=== PATIENT | male | born 1940 | race Caucasian/White ===

== ENCOUNTER 2016-07-24 09:49 | Outpatient (CLI) | payer MEDICARE ==
[2016-07-24 10:54] LABS: ALT (SGPT) 14 U/L (0-55); AST (SGOT) 14 U/L (5-34); Alkaline Phosphatase 49 U/L (40-150); Anion Gap 14 mmol/L (10-20); BUN (Urea Nitrogen) 49 mg/dL (8.4-25.7); Bilirubin, Total 0.6 mg/dL (0.2-1.2); Calc. Creatinine Clearance 0 mL/min (70-130); Calcium 8.6 mg/dL (7.8-10.44); Carbon Dioxide 22 mmol/L (23-31); Chloride 108 mmol/L (98-107); Estimated GFR-MDRD 41; Globulin 2.2 g/dL (2.4-3.5); LDL Cholesterol, Calculated 136 mg/dL; Protein, Total 6.1 g/dL (5.8-8.1)
[2016-07-24 10:56] LABS: #Basophils 0.1 thou/uL (0.0-0.2); #Eosinphils 0.2 thou/uL (0.0-0.7); #Lymphocytes 1.3 thou/uL (1.20-3.40); #Monocytes 0.7 thou/uL (0.11-0.59); #Neutrophils 4.5 thou/uL (1.40-6.50); %Basophils 0.9 % (0.0-1.0); %Eosinophils 3.7 % (0.0-10.0); %Monocytes 9.7 % (0.0-10.0); Hematocrit 35.6 % (42.0-52.0); Mean Platelet Volume 6.1 fL (7.4-10.4); Red Blood Cell (RBC) Count 3.57 mill/uL (4.70-6.10); White Blood Cell (WBC) Count 6.7 thou/uL (4.8-10.8)
== END 2016-07-24 09:50 | disposition home or self-care (01) ==
LOC: HPCALD 09:49
PROVIDERS: ATTEND Family Medicine
DX: I10 Essential (primary) hypertension (principal); E78.5 Hyperlipidemia, unspecified; R97.20 Elevated prostate specific antigen [PSA]
CPT/HCPCS: 36415; 80053; 80061; 84153; 85025

== ENCOUNTER 2016-09-07 16:24 | Emergency (ER) | payer MEDICARE ==
[2016-09-07 16:47] LABS: #Basophils 0.1 thou/uL (0.0-0.2); #Eosinphils 0.1 thou/uL (0.0-0.7); #Lymphocytes 1.1 thou/uL (1.20-3.40); #Monocytes 0.8 thou/uL (0.11-0.59); #Neutrophils 5.2 thou/uL (1.40-6.50); %Basophils 0.7 % (0.0-1.0); %Eosinophils 1.9 % (0.0-10.0); %Lymphocytes 15.6 % (21.0-51.0); %Monocytes 10.7 % (0.0-10.0); %Neutrophils 71.1 % (42.0-75.0); Hemoglobin 12.9 g/dL (14.0-18.0); Mean Corpuscular HGB CONC 33.7 g/dL (32.0-36.0); Mean Platelet Volume 7.5 fL (7.4-10.4); Platelet Count 207 thou/uL (130-400); RBC Distribution Width 10.8 % (11.5-14.5); Red Blood Cell (RBC) Count 3.78 mill/uL (4.70-6.10); White Blood Cell (WBC) Count 7.3 thou/uL (4.8-10.8)
[2016-09-07 17:04] LABS: ALT (SGPT) 11 U/L (0-55); AST (SGOT) 13 U/L (5-34); Albumin 3.9 g/dL (3.4-4.8); Alkaline Phosphatase 50 U/L (40-150); Anion Gap 15 mmol/L (10-20); BUN (Urea Nitrogen) 18 mg/dL (8.4-25.7); Bilirubin, Total 0.5 mg/dL (0.2-1.2); CK (CPK) 50 U/L (30-200); Calc. Creatinine Clearance 0 mL/min (70-130); Calcium 8.8 mg/dL (7.8-10.44); Carbon Dioxide 24 mmol/L (23-31); Chloride 99 mmol/L (98-107); Estimated GFR-MDRD 65; Globulin 2.5 g/dL (2.4-3.5); Glucose 98 mg/dL (83-110); Potassium 4.7 mmol/L (3.5-5.1); Protein, Total 6.4 g/dL (5.8-8.1); Sodium 133 mmol/L (136-145)
[2016-09-07 17:10] LABS: CKMB 1.9 ng/mL (0-6.6); Troponin I 0.033 ng/mL (< 0.028)
[2016-09-07] MEDS ORDERED: Nitroglycerin 2% Ointment 1 INCH/1 GM Packet ONE (17:29)
[2016-09-07 17:58] LABS: Bilirubin Negative (Negative); Blood, Urine Negative (Negative); Clarity Clear (Clear); Glucose, Urine (Dipstick) Negative (Negative); Leukocyte Negative (Negative); Nitrite Negative (Negative); Protein, Urine (Dipstick) Negative (Neg-Trace); Urobilinogen 0.2 mg/dL (0.2-1.0); pH, Urine 6.5 (5.0-9.0)
--- NOTE | 2016-09-07 21:14 | RAD ---
PORTABLE CHEST: Date: 09-07-16 Comparison: 08-24-15 This portable film at 1741 shows borderline heart size that is no different than before. The vessels are slightly congested compared to the last study, but there are no large effusions. Haziness in th e left costophrenic angle is probably due to the portable technique and positioning, rather than any fluid. It is not substantially different than the 2016 study. IMPRESSION: Question of mild vascular prominence. The exam otherwise shows no acute findings. POS: HOME
== END 2016-09-07 18:24 | disposition short-term general hospital (02) ==
LOC: BURERS 16:24
DX: M62.81 Muscle weakness (generalized) (principal); R79.89 Other specified abnormal findings of blood chemistry; I11.0 Hypertensive heart disease with heart failure; I50.9 Heart failure, unspecified; J44.9 Chronic obstructive pulmonary disease, unspecified; F41.9 Anxiety disorder, unspecified; Z87.891 Personal history of nicotine dependence; Z79.82 Long term (current) use of aspirin; Z79.899 Other long term (current) drug therapy
CPT/HCPCS: 36416; 71010; 80053; 81003; 82553; 84484; 85025; 93005; 96360

== ENCOUNTER 2016-11-23 08:55 | Outpatient (CLI) | payer MEDICARE ==
[2016-11-23 10:14] LABS: Anion Gap 17 mmol/L (10-20); BUN (Urea Nitrogen) 66 mg/dL (8.4-25.7); Calc. Creatinine Clearance 0 mL/min (70-130); Calcium 8.6 mg/dL (7.8-10.44); Carbon Dioxide 24 mmol/L (23-31); Cardiac Risk 5.8 (Less than 4.5); Chloride 101 mmol/L (98-107); Cholesterol 203 mg/dl (< 200 Desired); Estimated GFR-MDRD 22; Glucose 111 mg/dL (83-110); HDL Cholesterol 35 mg/dL (>60 Neg Risk); LDL Cholesterol, Calculated 148 mg/dL; Potassium 5.1 mmol/L (3.5-5.1); Sodium 137 mmol/L (136-145); Triglycerides 98 mg/dL (Less than 150)
== END 2016-11-23 08:56 | disposition home or self-care (01) ==
LOC: BURLAB 08:55
PROVIDERS: ATTEND Internal Medicine Cardiovascular Disease
DX: E78.2 Mixed hyperlipidemia (principal); I50.40 Unspecified combined systolic (congestive) and diastolic (congestive) heart failure; R97.20 Elevated prostate specific antigen [PSA]
CPT/HCPCS: 36415; 80048; 80061

== ENCOUNTER 2017-01-04 11:55 | Emergency (ER) | payer MEDICARE ==
[2017-01-04] MEDS ORDERED: Ibuprofen 800 MG TAB ONE (12:34)
[2017-01-04] MEDS ORDERED: HYDROcodone/Acetaminophen 10/325 mg Tablet ONE (12:34)
--- NOTE | 2017-01-04 16:59 | RAD ---
RIGHT ANKLE 3 VIEWS: Date: 01/04/17 Three views show a fracture of the distal fibular shaft with no displacement. The distal tibia appea rs intact. A large calcaneal spur was noted. IMPRESSION: Fracture of the distal fibular shaft. POS: HOME
== END 2017-01-04 12:40 | disposition home or self-care (01) ==
LOC: BURERS 11:55
DX: S82.831A Other fracture of upper and lower end of right fibula, initial encounter for closed fracture (principal); J44.9 Chronic obstructive pulmonary disease, unspecified; I10 Essential (primary) hypertension; F41.9 Anxiety disorder, unspecified; Z87.891 Personal history of nicotine dependence; Z79.82 Long term (current) use of aspirin; Z79.899 Other long term (current) drug therapy; Z79.1 Long term (current) use of non-steroidal anti-inflammatories (NSAID); W01.0XXA Fall on same level from slipping, tripping and stumbling without subsequent striking against object, initial encounter

== ENCOUNTER 2017-01-26 10:49 | Outpatient (CLI) | payer MEDICARE ==
[2017-01-26 11:55] LABS: #Basophils 0.1 thou/uL (0.0-0.2); #Eosinphils 0.3 thou/uL (0.0-0.7); #Monocytes 0.7 thou/uL (0.11-0.59); #Neutrophils 4.9 thou/uL (1.40-6.50); %Basophils 0.8 % (0.0-1.0); %Eosinophils 3.6 % (0.0-10.0); %Monocytes 10.3 % (0.0-10.0); %Neutrophils 70.3 % (42.0-75.0); Hemoglobin 11.9 g/dL (14.0-18.0); Mean Corpuscular HGB CONC 31.9 g/dL (32.0-36.0); Mean Corpuscular Hemoglobin 32.9 pg (27.0-31.0); Platelet Count 208 thou/uL (130-400); RBC Distribution Width 12.1 % (11.5-14.5); Red Blood Cell (RBC) Count 3.62 mill/uL (4.70-6.10)
[2017-01-26 12:18] LABS: ALT (SGPT) 11 U/L (8-55); AST (SGOT) 15 U/L (5-34); Albumin 4.1 g/dL (3.4-4.8); Alkaline Phosphatase 55 U/L (40-150); Anion Gap 14 mmol/L (10-20); BUN (Urea Nitrogen) 30 mg/dL (8.4-25.7); Bilirubin, Total 0.7 mg/dL (0.2-1.2); Calc. Creatinine Clearance 0 mL/min (70-130); Carbon Dioxide 25 mmol/L (23-31); Cardiac Risk 2.7 (Less than 4.5); Chloride 103 mmol/L (98-107); Cholesterol 137 mg/dl (< 200 Desired); Estimated GFR-MDRD 47; Globulin 2.3 g/dL (2.4-3.5); Glucose 106 mg/dL (83-110); HDL Cholesterol 50 mg/dL (>60 Neg Risk); LDL Cholesterol, Calculated 75 mg/dL; Potassium 5.3 mmol/L (3.5-5.1); Protein, Total 6.4 g/dL (5.8-8.1); Sodium 137 mmol/L (136-145); Triglycerides 60 mg/dL (Less than 150)
[2017-01-26 17:14] LABS: Iron 81 ug/dL (65-175); Phosphorus 3.6 mg/dL (2.3-4.7)
[2017-01-26 17:50] LABS: Folate (Folic Acid) 16.4 ng/mL (7.0-31.4)
[2017-01-28 02:11] LABS: % Free PSA 7.5 % (.); Total PSA 6.4 ng/mL (0.0-4.0)
== END 2017-01-26 10:50 | disposition home or self-care (01) ==
LOC: BURLAB 10:49
PROVIDERS: ATTEND Internal Medicine Nephrology
DX: E78.5 Hyperlipidemia, unspecified (principal); I12.9 Hypertensive chronic kidney disease with stage 1 through stage 4 chronic kidney disease, or unspecified chronic kidney disease; N18.4 Chronic kidney disease, stage 4 (severe); E78.2 Mixed hyperlipidemia; I25.10 Atherosclerotic heart disease of native coronary artery without angina pectoris; D53.9 Nutritional anemia, unspecified; R97.20 Elevated prostate specific antigen [PSA]
CPT/HCPCS: 36415; 80053; 80061; 82607; 82746; 83540; 83970; 84100; 84153; 84154; 85025

== ENCOUNTER 2017-03-17 22:40 | Emergency (ER) | payer MEDICARE ==
[2017-03-17] MEDS ORDERED: diphenhydrAMINE HCl 25 MG CAP ONE (23:19)
[2017-03-17 23:32] LABS: Bilirubin Negative (Negative); Blood, Urine Trace (Negative); Clarity Clear (Clear); Glucose, Urine (Dipstick) Negative (Negative); Leukocyte Negative (Negative); Nitrite Negative (Negative); Protein, Urine (Dipstick) 100 mg/dL (Neg-Trace); Specific Gravity, Urine 1.015 (1.005-1.030); Urobilinogen 0.2 mg/dL (0.2-1.0); pH, Urine 7.5 (5.0-9.0)
[2017-03-17 23:33] LABS: #Basophils 0.1 thou/uL (0.0-0.2); #Lymphocytes 0.2 thou/uL (1.20-3.40); #Monocytes 0.5 thou/uL (0.11-0.59); #Neutrophils 6.2 thou/uL (1.40-6.50); %Basophils 1.4 % (0.0-1.0); %Eosinophils 0.7 % (0.0-10.0); %Lymphocytes 2.4 % (21.0-51.0); %Monocytes 7.6 % (0.0-10.0); Hemoglobin 11.5 g/dL (14.0-18.0); Mean Corpuscular HGB CONC 32.8 g/dL (32.0-36.0); Mean Platelet Volume 7.8 fL (7.4-10.4); Platelet Count 168 thou/uL (130-400); RBC Distribution Width 11.4 % (11.5-14.5); Red Blood Cell (RBC) Count 3.38 mill/uL (4.70-6.10)
[2017-03-17 23:47] LABS: ALT (SGPT) 15 U/L (8-55); AST (SGOT) 19 U/L (5-34); Albumin 3.8 g/dL (3.4-4.8); Alkaline Phosphatase 52 U/L (40-150); Anion Gap 14 mmol/L (10-20); BUN (Urea Nitrogen) 33 mg/dL (8.4-25.7); Bilirubin, Total 0.5 mg/dL (0.2-1.2); Calc. Creatinine Clearance 0 mL/min (70-130); Calcium 8.9 mg/dL (7.8-10.44); Carbon Dioxide 24 mmol/L (23-31); Chloride 100 mmol/L (98-107); Estimated GFR-MDRD 33; Globulin 2.7 g/dL (2.4-3.5); Glucose 128 mg/dL (83-110); Potassium 4.7 mmol/L (3.5-5.1); Protein, Total 6.5 g/dL (5.8-8.1); Sodium 133 mmol/L (136-145)
[2017-03-17 23:49] LABS: Bacteria/HPF Rare-Few HPF (None Seen); RBC/HPF 0-3 HPF (0-3); Squamous Epithelial None Seen HPF (0-3); WBC/HPF None Seen HPF (0-3)
[2017-03-17 23:58] LABS: CKMB 0.8 ng/mL (0-6.6); Troponin I 0.097 ng/mL (< 0.028)
[2017-03-18] MEDS ORDERED: Acetaminophen 500 MG TAB ONE (00:22)
[2017-03-18] MEDS ORDERED: Furosemide 40 MG/4 ML VIAL ONE (00:30)
[2017-03-18 02:38] LABS: CKMB 0.8 ng/mL (0-6.6); Troponin I 0.142 ng/mL (< 0.028)
--- NOTE | 2017-03-18 07:29 | RAD ---
PORTABLE CHEST: DATE: 03/18/17. FINDINGS: An AP portable film at 0012 is compared with a 09/07/16 study. Mild cardiomegaly is no different than before. I do not believe there is overt vascular congestion, though the vessels are more prominent than seen in some people. They are not significantly differe nt than the prior study. It is difficult to assess the left lung base in this patient. I cannot te ll if there is minimal infiltrate here of if this is just due to poor penetration due to portable [place]. If the patient has pulmonary symptoms, a PA and lateral elective followup might be contemp lated. IMPRESSION: Equivocal findings in the left base, mainly because it is not seen well. Exam otherwise shows no ac [place] findings. See above. POS: HOME
== END 2017-03-18 02:16 | disposition short-term general hospital (02) ==
LOC: BURERS 22:40
DX: L03.115 Cellulitis of right lower limb (principal); I13.0 Hypertensive heart and chronic kidney disease with heart failure and stage 1 through stage 4 chronic kidney disease, or unspecified chronic kidney disease; N18.9 Chronic kidney disease, unspecified; I50.9 Heart failure, unspecified; R74.8 Abnormal levels of other serum enzymes; J44.9 Chronic obstructive pulmonary disease, unspecified; F41.9 Anxiety disorder, unspecified; D50.9 Iron deficiency anemia, unspecified; Z87.891 Personal history of nicotine dependence
CPT/HCPCS: 36415; 71010; 80053; 81003; 81015; 82553; 83605; 83880; 84484; 85025; 87040; 87086; 93005; 94760; 96365; 96366; 96375; J1940; J3370

== ENCOUNTER 2017-11-08 03:07 | Emergency (ER) | payer MEDICARE ==
[2017-11-08] MEDS ORDERED: Furosemide 40 MG/4 ML VIAL ONE (03:41)
[2017-11-08] MEDS ORDERED: Benzonatate 100 MG CAP ONE ×3 (03:48→03:50)
[2017-11-08 04:00] LABS: Hemoglobin 13.4 g/dL (14.0-18.0); Red Blood Cell (RBC) Count 3.93 mill/uL (4.70-6.10); White Blood Cell (WBC) Count 9.9 thou/uL (4.8-10.8)
[2017-11-08] MEDS ORDERED: Benzonatate 100 MG CAP PO SCH (04:00)
[2017-11-08 04:01] LABS: Mean Corpuscular HGB CONC 36.4 g/dL (32.0-36.0); Mean Corpuscular Volume 93.5 fL (80.0-94.0); Mean Platelet Volume 7.7 fL (7.4-10.4); Platelet Count 164 thou/uL (130-400); RBC Distribution Width 10.6 % (11.5-14.5)
[2017-11-08 04:03] LABS: ALT (SGPT) 11 U/L (8-55); AST (SGOT) 11 U/L (5-34); Albumin 4.1 g/dL (3.4-4.8); Alkaline Phosphatase 57 U/L (40-150); Anion Gap 17 mmol/L (10-20); BUN (Urea Nitrogen) 33 mg/dL (8.4-25.7); Bilirubin, Total 0.6 mg/dL (0.2-1.2); Calc. Creatinine Clearance 0 mL/min (70-130); Calcium 9.3 mg/dL (7.8-10.44); Carbon Dioxide 35 mmol/L (23-31); Chloride 91 mmol/L (98-107); Estimated GFR-MDRD 38; Globulin 3.1 g/dL (2.4-3.5); Glucose 125 mg/dL (83-110); Potassium 3.6 mmol/L (3.5-5.1); Protein, Total 7.2 g/dL (5.8-8.1); Sodium 139 mmol/L (136-145)
[2017-11-08 04:05] LABS: Troponin I 0.066 ng/mL (< 0.028)
[2017-11-08 04:16] LABS: #Monocytes 1.1 thou/uL (0.11-0.59); #Neutrophils 6.8 thou/uL (1.40-6.50); %Basophils 1.7 % (0.0-1.0); %Eosinophils 10.3 % (0.0-10.0); %Lymphocytes 8.5 % (21.0-51.0); %Monocytes 10.6 % (0.0-10.0); Manual Diff?? NO
[2017-11-08 04:17] LABS: #Basophils 0.2 thou/uL (0.0-0.2); MDiff Complete? YES
[2017-11-08] MEDS ORDERED: methylPREDNISolone Sod Succ/PF 125 MG/2 ML VIAL ONE (04:42)
--- NOTE | 2017-11-08 07:03 | RAD ---
PORTABLE CHEST: DATE: 11/08/17. FINDINGS: An AP portable film at 0319 is compared with a 03/18/17 study. The heart is normal in size and the lungs are clear. No infiltrate, effusion, or vascular congestion was seen. The trachea is midline. IMPRESSION: No acute thoracic finding. POS: HOME
[2017-11-08 09:02] LABS: #Lymphocytes 0.8 thou/uL (1.20-3.40)
== END 2017-11-08 04:50 | disposition home or self-care (01) ==
LOC: BURERS 03:07
DX: J44.1 Chronic obstructive pulmonary disease with (acute) exacerbation (principal); I11.0 Hypertensive heart disease with heart failure; I50.9 Heart failure, unspecified; F41.9 Anxiety disorder, unspecified; Z87.891 Personal history of nicotine dependence; Z79.82 Long term (current) use of aspirin; Z79.899 Other long term (current) drug therapy
CPT/HCPCS: 71045; 80053; 82553; 83880; 84484; 85025; 85379; 93005; 96374; 96375; J1940; J2930; J7620

== ENCOUNTER 2018-03-24 09:46 | Outpatient (CLI) | payer MEDICARE ==
--- NOTE | 2018-03-24 18:39 | RAD ---
LEFT FEMUR 03/24/18 There has been a prior knee arthroplasty. The portions of it I can see all show no sign of loosening or infection. There might be a small joint effusion at the knee. The femur itself appears intact with no sign of fracture. IMPRESSION: No acute bony finding. POS: HOME
--- NOTE | 2018-03-24 20:02 | RAD ---
LEFT HIP TWO VIEWS: 03/24/18 No fracture or dislocation was appreciated. There is slight joint space narrowing but only minimal ayan ny spurring. A few vague lines around the femoral neck appear to be trabecular markings. If there was recent trauma and concern of an occult hip fracture, then other studies (such as an MRI or CT) would be needed to rule out occult injuries. The left SI joint and left pubic ring appear intact. IMPRESSION: No definite acute findings. See comments above. Code T POS: HOME
== END 2018-03-24 09:47 | disposition home or self-care (01) ==
LOC: BURRAD 09:46
PROVIDERS: ATTEND Family Medicine
DX: M25.552 Pain in left hip (principal); M16.12 Unilateral primary osteoarthritis, left hip; M25.852 Other specified joint disorders, left hip

== ENCOUNTER 2018-04-16 19:17 | Emergency (ER) | payer MEDICARE ==
[2018-04-16] MEDS ORDERED: methylPREDNISolone Sod Succ/PF 125 MG/2 ML VIAL ONE (19:43)
[2018-04-16] MEDS ORDERED: Benzonatate 100 MG CAP ONE (19:43)
[2018-04-16 19:50] LABS: #Basophils 0.1 thou/uL (0.0-0.2); #Eosinphils 0.1 thou/uL (0.0-0.7); #Lymphocytes 1.1 thou/uL (1.20-3.40); #Monocytes 1.3 thou/uL (0.11-0.59); #Neutrophils 11.3 thou/uL (1.40-6.50); %Basophils 0.6 % (0.0-1.0); %Eosinophils 0.6 % (0.0-10.0); %Monocytes 9.2 % (0.0-10.0); %Neutrophils 81.6 % (42.0-75.0); Hemoglobin 12.8 g/dL (14.0-18.0); Mean Corpuscular HGB CONC 35.9 g/dL (32.0-36.0); Mean Corpuscular Hemoglobin 33.5 pg (27.0-31.0); Mean Corpuscular Volume 93.3 fL (78.0-98.0); Mean Platelet Volume 7.4 fL (7.4-10.4); Platelet Count 222 thou/uL (130-400); RBC Distribution Width 10.9 % (11.5-14.5); Red Blood Cell (RBC) Count 3.81 mill/uL (4.70-6.10); White Blood Cell (WBC) Count 13.8 thou/uL (4.8-10.8)
[2018-04-16 20:02] LABS: ALT (SGPT) 16 U/L (8-55); AST (SGOT) 13 U/L (5-34); Albumin 3.8 g/dL (3.4-4.8); Alkaline Phosphatase 57 U/L (40-150); Anion Gap 17 mmol/L (10-20); BUN (Urea Nitrogen) 33 mg/dL (8.4-25.7); Bilirubin, Total 0.6 mg/dL (0.2-1.2); Calc. Creatinine Clearance 0 mL/min (70-130); Calcium 9.1 mg/dL (7.8-10.44); Carbon Dioxide 26 mmol/L (23-31); Chloride 98 mmol/L (98-107); Estimated GFR-MDRD 43; Globulin 3.2 g/dL (2.4-3.5); Glucose 174 mg/dL (83-110); Potassium 3.7 mmol/L (3.5-5.1); Sodium 137 mmol/L (136-145)
[2018-04-16 20:04] LABS: CKMB 1.1 ng/mL (0-6.6); Troponin I 0.066 ng/mL (< 0.028)
--- NOTE | 2018-04-16 20:06 | RAD ---
PORTABLE UPRIGHT FRONTAL CHEST RADIOGRAPH 04/16/18 COMPARISON: 12/05/17 HISTORY: Cough and dyspnea. FINDINGS: Heart and mediastinal contours are stable. Stable increased linear interstitial density noted. No pne umothorax, pleural fluid, lobar consolidation or alveolar edema. IMPRESSION: No acute findings. POS: [facility]
== END 2018-04-16 20:55 | disposition short-term general hospital (02) ==
LOC: BURERS 19:17
DX: J44.1 Chronic obstructive pulmonary disease with (acute) exacerbation (principal); I11.0 Hypertensive heart disease with heart failure; I50.9 Heart failure, unspecified; F41.9 Anxiety disorder, unspecified; Z87.891 Personal history of nicotine dependence; Z79.899 Other long term (current) drug therapy; Z79.82 Long term (current) use of aspirin
CPT/HCPCS: 71045; 80053; 82553; 83605; 83880; 84484; 85025; 93005; 94640; 96374; 96375; J1956; J2930; J7620

== ENCOUNTER 2018-06-23 11:29 | Outpatient (CLI) | payer MEDICARE ==
--- NOTE | 2018-06-23 13:39 | RAD ---
CHEST 2 VIEWS: DATE: 06/23/2018. FINDINGS: The heart is mildly enlarged but no more so than before. There is no overt cardiac failure at the mo ment. The lungs are clear. There is no congestion of vessels or pleural effusions. There is a very minimal amount of retrocardiac streaking that may just be vessels. Degenerative changes are seen in the spine. IMPRESSION: Cardiomegaly without overt congestive change. POS: HOME
== END 2018-06-23 11:30 | disposition home or self-care (01) ==
LOC: BURRAD 11:29
PROVIDERS: ATTEND Orthopaedic Surgery Hand Surgery
DX: I50.9 Heart failure, unspecified (principal); I51.7 Cardiomegaly
CPT/HCPCS: 71046

== ENCOUNTER 2019-03-24 10:50 | Outpatient (CLI) | payer MEDICARE ==
--- NOTE | 2019-03-24 17:57 | RAD ---
CHEST TWO VIEWS: 03/24/19 Comparison is made with the 06/23/18 study. While on the PA film, there does not appear to be any remarkable infiltrate, on the lateral view the posterior portion of the left hemidiaphragm seems a little indistinct and there is some minor increas e in markings here. I cannot exclude a very minimal left basilar infiltrate. There are no large effus ions. The heart is mildly enlarged but unchanged from prior films. There are no congestive changes or large pleural effusions. IMPRESSION: Question of minimal left basilar infiltrate. POS: HOME
== END 2019-03-24 10:51 | disposition home or self-care (01) ==
LOC: BURRAD 10:50
PROVIDERS: ATTEND Family Medicine
DX: R05 Cough (principal)
CPT/HCPCS: 71046

== ENCOUNTER 2019-08-01 00:35 | Emergency (ER) | payer MEDICARE ==
[2019-08-01] MEDS ORDERED: Furosemide 40 MG/4 ML VIAL ONE (00:51)
[2019-08-01] MEDS ORDERED: methylPREDNISolone Sod Succ/PF 125 MG/2 ML VIAL ONE (00:52)
[2019-08-01 01:03] LABS: #Basophils 0.1 thou/uL (0.0-0.2); #Eosinphils 0.6 thou/uL (0.0-0.7); #Lymphocytes 1.8 thou/uL (1.20-3.40); #Monocytes 0.7 thou/uL (0.11-0.59); #Neutrophils 4.4 thou/uL (1.40-6.50); %Basophils 1.2 % (0.0-1.0); %Eosinophils 7.4 % (0.0-10.0); %Lymphocytes 23.9 % (21.0-51.0); %Monocytes 8.8 % (0.0-10.0); %Neutrophils 58.7 % (42.0-75.0); Hemoglobin 12.7 g/dL (14.0-18.0); Mean Corpuscular HGB CONC 33.5 g/dL (32.0-36.0); Mean Corpuscular Hemoglobin 32.8 pg (27.0-31.0); Mean Corpuscular Volume 98.1 fL (78.0-98.0); Platelet Count 183 thou/uL (130-400); RBC Distribution Width 11.1 % (11.5-14.5); Red Blood Cell (RBC) Count 3.88 mill/uL (4.70-6.10); White Blood Cell (WBC) Count 7.5 thou/uL (4.8-10.8)
[2019-08-01 01:19] LABS: ALT (SGPT) 25 U/L (8-55); AST (SGOT) 21 U/L (5-34); Albumin 4.1 g/dL (3.4-4.8); Alkaline Phosphatase 65 U/L (40-110); Anion Gap 16 mmol/L (10-20); BUN (Urea Nitrogen) 58 mg/dL (8.4-25.7); Bilirubin, Total 0.5 mg/dL (0.2-1.2); Calc. Creatinine Clearance 0 mL/min (70-130); Calcium 8.7 mg/dL (7.8-10.44); Carbon Dioxide 30 mmol/L (23-31); Chloride 98 mmol/L (98-107); Estimated GFR-MDRD 31; Globulin 2.9 g/dL (2.4-3.5); Glucose 124 mg/dL (83-110); Potassium 3.8 mmol/L (3.5-5.1); Sodium 140 mmol/L (136-145)
[2019-08-01 01:35] LABS: CKMB 1.8 ng/mL (0-6.6)
--- NOTE | 2019-08-01 07:32 | RAD ---
PORTABLE CHEST: Date: 08/01/2019 An AP portable film at 0054 hours is compared with the prior study of 03/24/2019. The heart size is unchanged. There is no vascular congestion, edema, or pleural effusion. No focal pu lmonary infiltrate seen to suggest pneumonia. IMPRESSION: No acute findings. POS: HOME
[2019-08-01] MEDS ORDERED: predniSONE 20 MG TAB ONE (09:15)
== END 2019-08-01 10:20 | disposition home or self-care (01) ==
LOC: BURERS 00:35
DX: J44.1 Chronic obstructive pulmonary disease with (acute) exacerbation (principal); N28.9 Disorder of kidney and ureter, unspecified; R74.8 Abnormal levels of other serum enzymes; I11.0 Hypertensive heart disease with heart failure; I50.9 Heart failure, unspecified; Z87.891 Personal history of nicotine dependence; Z79.82 Long term (current) use of aspirin; Z79.899 Other long term (current) drug therapy; Z79.51 Long term (current) use of inhaled steroids
CPT/HCPCS: 71045; 80053; 82553; 83880; 84484; 85025; 87804; 93005; 96374; 96375; J1940; J2930; J7512; J7620

== ENCOUNTER 2021-01-09 10:50 | Outpatient (CLI) | payer MEDICARE | END 2021-01-09 10:51 | disposition home or self-care (01) | LOC: BURRAD 10:50 | PROVIDERS: ATTEND Family Medicine | DX: M79.644 Pain in right finger(s) (principal); S62.616A Displaced fracture of proximal phalanx of right little finger, initial encounter for closed fracture; M25.831 Other specified joint disorders, right wrist ==